=== PATIENT | female | born 1975 | race Two or more races ===

== ENCOUNTER → 2024-08-23 | Outpatient (BNVA) | payer MEDICAID, SELFPAY | END | disposition home or self-care (01) | PROVIDERS: PCP Nurse Practitioner Primary Care; Referring Provider Nurse Practitioner Primary Care; Visit Provider Nurse Practitioner Primary Care | DX: N92.6 Irregular menstruation, unspecified (principal); Z71.2 Person consulting for explanation of examination or test findings; D25.1 Intramural leiomyoma of uterus | CPT/HCPCS: 99213 ==

== ENCOUNTER → 2024-10-01 | Outpatient (BNVA) | payer MEDICAID, SELFPAY | END | disposition home or self-care (01) | PROVIDERS: PCP Nurse Practitioner Primary Care; Referring Provider Nurse Practitioner Primary Care; Visit Provider Nurse Practitioner Primary Care | DX: D25.1 Intramural leiomyoma of uterus (principal); D25.2 Subserosal leiomyoma of uterus; Z71.2 Person consulting for explanation of examination or test findings | CPT/HCPCS: 85018; 99214 ==

== ENCOUNTER → 2024-10-10 | Outpatient (BNVA) | payer MEDICAID, SELFPAY | END | disposition home or self-care (01) | PROVIDERS: PCP Nurse Practitioner Primary Care; Referring Provider Nurse Practitioner Primary Care; Visit Provider Nurse Practitioner Primary Care | DX: Z71.2 Person consulting for explanation of examination or test findings (principal); R79.9 Abnormal finding of blood chemistry, unspecified; E78.5 Hyperlipidemia, unspecified; E11.9 Type 2 diabetes mellitus without complications; Z79.4 Long term (current) use of insulin | CPT/HCPCS: 99213 ==

== ENCOUNTER 2024-11-17 15:06 | Emergency (ER) | payer MEDICAID, SELFPAY ==
[2024-11-17 15:07] VITALS: BMI 28.3
[2024-11-17 15:20] VITALS: BP 130/67; PULSE 105; RESP 16; TEMP 37; O2SAT 98
--- NOTE | 2024-11-17 15:39 | PD.EDRME ---
Rapid Medical Screening Exam RME Arrival date/time: 11/17/24 15:06 This is a 49-year-old female that comes in with complaints of heavy vaginal bleeding that started this morning. Patient states her last menstrual cycle was November 01, 2024. Patient states that she has had to change her brief 4 times in 1 hour. Patient has a history of anemia and was told she had a fibroma. Patient also has a history of diabetes I have greeted and performed a focused initial assessment of this patient. Initial appropriate labs ordered at this time. A comprehensive ED assessment and evaluation of the patient and analysis of all test and completion of medical decision making process will be conducted by additional ED provider. Chief Complaint: Abdominal Pain Time Seen by Provider: 11/17/24 15:10 Vital signs: Vital Signs Temperature 98.6 F 11/17/24 15:20 Pulse Rate 105 H 11/17/24 15:20 Respiratory Rate 16 11/17/24 15:20 Blood Pressure 130/67 11/17/24 15:20 Pulse Oximetry (%) 98 11/17/24 15:20 Oxygen Delivery Method Room Air 11/17/24 15:20
--- NOTE | 2024-11-17 15:43 | XR_ITS ---
Examination: Pelvic ultrasound, transabdominal, complete Technique: Transabdominal ultrasound of the pelvis performed using grayscale imaging Date and time of exam: November 17, 2024 1906 hrs. Indications: Heavy vaginal bleeding beginning 2 days ago Findings: Uterus 14.3 x 9.0 x 10.4 cm Endometrial uterine fundal mass 6.7 x 4.9 x 7.7 cm Endometrial stripe 15 mm Ovaries obscured by bowel gas Impression: Findings most consistent with large uterine fundal mass, 6.7 x 4.9 x 7.7 cm, stable compared with August 02, 2024
[2024-11-17 15:45] LABS: Basophils % (Auto) 0 % (0-2.5); Eosinophils # (Auto) 0.2 Thou/mm3 (0.0-0.5); Eosinophils % (Auto) 2 % (0-10); Hematocrit 33.6 % (36.0-46.0); Hemoglobin 10.6 g/dL (12.0-16.0); Immature Granulocytes % (Auto) 1 % (0-0); Immature Granulocytes Auto 0.06 Thou/mm3 (0.00-0.00); Lymphocytes # (Auto) 2.6 Thou/mm3 (1.0-4.8); Lymphocytes % (Auto) 28 % (10-50); Mean Corpuscular HGB Conc 31.5 g/dl (31.0-37.0); Mean Corpuscular Hemoglobin 28.2 pg (25.0-35.0); Mean Corpuscular Volume 89 fL (80-100); Monocytes # (Auto) 0.6 Thou/mm3 (0.0-0.8); Monocytes % (Auto) 7 % (0-12); Neutrophils # (Auto) 5.9 Thou/mm3 (1.8-7.7); Neutrophils % (Auto) 63 % (37-80); Nucleated Red Blood Cell % 0 /100 WBC (0); Platelet Count 354 Thou/mm3 (140-440); RDW Standard Deviation 77.5 fL (36.4-46.3); Red Blood Count 3.76 Miln/mm3 (4.00-5.20); White Blood Count 9.5 Thou/mm3 (3.6-11.0)
[2024-11-17 15:56] LABS: Prothrombin Time 10.7 Seconds (9.0-12.2)
[2024-11-17 16:01] LABS: Alanine Aminotransferase 44 U/L (10-49); Albumin/Globulin Ratio 1.4 (1.2-2.2); Alkaline Phosphatase 71 U/L (46-116); Anion Gap 7 (7-16); Aspartate Amino Transferase 24 U/L (0-34); BUN/Creatinine Ratio 15 Ratio (12-20); Bilirubin,Total 0.2 mg/dL (0.3-1.2); Blood Urea Nitrogen 12 mg/dL (9-23); Calcium 8.7 mg/dL (8.3-10.6); Calcium (Corrected) 8.7 mg/dL (8.5-10.1); Carbon Dioxide 23.7 mMol/L (20.0-31.0); Chloride 109 mMol/L (98-107); Creatinine (Component) 0.8 mg/dL (0.6-1.3); Estimated Creatinine Clearance 84.3 mL/min (>60); Globulin 2.9 gm/dL (2.3-3.5); Glucose 125 mg/dL (74-106); Osmolality,Calculated 280 (275-295); Potassium 4.1 mMol/L (3.4-5.1); Sodium 140 mMol/L (136-145); Total Protein 6.9 gm/dL (5.7-8.2); eGFR > 60 See Note
[2024-11-17 16:05] LABS: Collection Type, Urine Voided; Squamous Epithelial Cell,Urine 0 /hpf (0-5)
[2024-11-17 16:23] LABS: HCG,Qualitative Serum Negative
[2024-11-17 16:26] LABS: Bilirubin,Urine Negative (Negative); Blood,Urine 3+ (Negative); Glucose, Urine Negative (Negative); Ketones,Urine Negative (Negative); Leukocyte Esterase,Urine Positive (Negative); Nitrite,Urine Negative (Negative); Protein,Urine 1+ (Neg - Trace); RBC,Urine 4009 /hpf (0-3); Urobilinogen,Urine Negative mg/dL (0.0-1.0); WBC,Urine 44 /hpf (0-5)
[2024-11-17 16:27] LABS: Culture Indicated,Urine Yes
[2024-11-17 16:28] LABS: Clarity,Urine Cloudy (Clear/Hazy); Color,Urine Lt-Red (Lt Yel-Yel)
[2024-11-17 18:11] VITALS: BP 114/73; PULSE 96; RESP 20; TEMP 37.1; O2SAT 98
[2024-11-17 19:17] VITALS: BP 113/76; PULSE 90; RESP 20; TEMP 36.7; O2SAT 99
--- NOTE | 2024-11-17 19:46 | EDNOTE_ITS ---
ED OB Contraction Preg RMI/HPI General Chief complaint: Abdominal Pain Stated complaint: LLQ ABD PAIN, HEAVY MENSTRAL BLEEDING SINCE 3AM Time Seen by Provider: 11/17/24 15:10 Source: patient Arrival date/time: 11/17/24 15:06 49-year-old female with past medical history of anemia presents to the emergency department complaining of vaginal bleeding that is been ongoing for 4 days but in recently worsened today. Patient reports has changed more than 4 pads today. Patient reports is a patient of Dr Cano INFORMATION OFFICER and has a follow-up appointment on Monday. Patient denies any fever, chills, dysuria, flank pain, or any other associated symptom. Mode of arrival: ambulatory Limitations: no limitations RME / HPI RME / HPI Narrative: 11/17/24 15:06 This is a 49-year-old female that comes in with complaints of heavy vaginal bleeding that started this morning. Patient states her last menstrual cycle was November 01, 2024. Patient states that she has had to change her brief 4 times in 1 hour. Patient has a history of anemia and was told she had a fibroma. Patient also has a history of diabetes I have greeted and performed a focused initial assessment of this patient. Initial appropriate labs ordered at this time. A comprehensive ED assessment and evaluation of the patient and analysis of all test and completion of medical decision making process will be conducted by additional ED provider. Related Data Previous Rx's ?Medication ?Instructions ?Recorded atorvastatin 10 mg tablet (Lipitor) 10 mg PO QHS #90 t abs 07/08/24 metformin 500 mg tablet 500 mg PO QDAY #90 tabs 06/19 10/11 cyclobenzaprine 5 mg tablet 5 mg PO QHS PRN muscle spa sm #20 10/10/24 tabs ferrous sulfate 325 mg (65 mg 325 mg PO QDAY #30 tabs 10/10/24 iron) tablet ibuprofen 800 mg tablet 800 mg PO Q8H PRN pain #60 t abs 10/10/24 acetaminophen 500 mg capsule 500 mg PO Q6H PRN pain #3 0 caps 11/17/24 cephalexin 500 mg tablet 500 mg PO BID 5 days #10 tab s 11/17/24 Allergies Allergy/AdvReac Type Severity Reaction Status Date / Time No Known Allergies Allergy Verified 11/17/24 15:10 Review of Systems Review of Systems Systems Reviewed: All systems reviewed, normal except as documented Constitutional Constitutional: Reports system reviewed and no additional complaints, except as documented, Denies body ache(s), Denies chills and Denies fever(s) Eyes Eyes: Reports system reviewed and no additional complaints, except as documented and Denies change in vision ENT Ears, Nose, Mouth, and Throat: Reports system reviewed and no additional complaints, except as documented, Denies disequilibrium, Denies dizziness, Westley es sore throat and Denies vertigo Cardiovascular Cardiovascular: Reports system reviewed and no additional complaints, except as documented, Denies chest pain and Denies dyspnea Respiratory Respiratory: Reports system reviewed and no additional complaints, except as documented, Denies chest congestion, Denies cough and Denies dyspnea Gastrointestinal Gastrointestinal: Reports system reviewed and no additional complaints, except as documented, Reports abdominal pain, Denies nausea and Denies vomiting Genitourinary Genitourinary: Reports abnormal vaginal bleeding Musculoskeletal Musculoskeletal: Reports system reviewed and no additional complaints, except as documented, Denies abnormal gait and Denies arthralgias Integumentary/Breasts Skin/Breast: Reports system reviewed and no additional complaints, except as documented, Denies erythema, Denies rash and Denies wounds Neurologic Neurologic: Reports system reviewed and no additional complaints, except as documented, Denies abnormal gait, Denies disequilibrium, Denies dizziness and Denies vertigo Past Medical History Past Medical History CARDIAC: Negative Congestive Heart Failure RESPIRATORY: Negative Chronic Obstructive Pulmonary Disease (COPD) GENITOURINARY: Negative Renal Disease ENDOCRINE: Negative Diabetes Mellitus Type 1 or Diabetes Mellitus Type 2 Social History SMOKING STATUS: Current every day smoker SECOND HAND EXPOSURE: Yes ED Exam General Limitations: Present no limitations General appearance: Present alert and in no apparent distress Head Head exam: Present atraumatic Eye Eye exam: Present normal appearance, PERRL and EOMI ENT ENT exam: Present normal exam, normal oropharynx and mucous membranes moist Neck Neck exam: Present normal inspection, full ROM and trachea midline Chest Chest inspection: Present normal inspection and symmetric chest wall rise Respiratory Respiratory exam: Present normal lung sounds bilaterally Cardiovascular Cardiovascular exam: Present regular rate, normal rhythm and normal heart sounds Abdominal Exam Abdominal exam: Present soft and normal bowel sounds; Absent Alba's sign or tenderness at McBurney's Point Extremities Exam Extremities exam: Present normal inspection and full ROM Back Exam Back exam: Present normal inspection and full ROM Neurological Exam Neurological exam: Present alert, oriented X3 and CN II-XII intact Psychiatric Psychiatric exam: Present normal affect and normal mood Skin Skin exam: Present warm, dry, intact and normal color Course Quality Measures none Orders Category Date Time Status US pelvic complete Stat Exams 11/17/24 15:43 Completed CBC Stat Lab 11/17/24 15:37 Completed Comprehensive Metabolic Panel Stat Lab 11/17/24 15:37 Completed HCG,Qualitative Serum Stat Lab 11/17/24 15:37 Completed Prothrombin Time with INR Stat Lab 11/17/24 15:37 Completed Type and Screen Stat Lab 11/17/24 15:37 Completed Urinalysis, C/S if Indicated Stat Lab 11/17/24 15:40 Completed Urine Culture Stat Lab 11/17/24 15:40 Received Acetaminophen Tab [Tylenol ES Tab] Med 11/17/24 19:49 Discontinued 1,000 mg PO X1 ONE Vital Signs Vital signs: Vital Signs Temperature 98.6 F 11/17/24 15:20 Pulse Rate 105 H 11/17/24 15:20 Respiratory Rate 16 11/17/24 15:20 Blood Pressure 130/67 11/17/24 15:20 Pulse Oximetry (%) 98 11/17/24 15:20 Oxygen Delivery Method Room Air 11/17/24 15:20 98% room air within normal limits Vaginal Bleeding MDM Narrative MDM Narrative: 49-year-old female with past medical history of anemia presents to the emergency department complaining of vaginal bleeding that is been ongoing for 4 days but in recently worsened today. Patient reports has changed more than 4 pads today. Patient reports is a patient of Dr Cano INFORMATION OFFICER and has a follow-up appointment on Monday. Patient denies any fever, chills, dysuria, flank pain, or any other associated symptom. CBC no leukocytosis and hemoglobin of 10.6. CMP was unremarkable for any elevated LFTs or gross electrolyte abnormalities. hCG negative. Ultrasound pelvis findings as written by radiologist: Uterus 14.3 x 9.0 x 10.4 cm Endometrial uterine fundal mass 6.7 x 4.9 x 7.7 cm Endometrial stripe 15 mm Ovaries obscured by bowel gas Patient appears nontoxic and is hemodynamically stable. Patient has had uterine fundal mass and previous ultrasounds and currently sees Dr Cano. Dr Cano consulted and agreed to see patient tomorrow morning at 9 AM in his office for close follow-up. Patient given strict return instructions to return to emergency department if any worsening bleeding, severe pain, worsening symptoms, or as needed. Urinalysis was positive for some leukocytes and WBCs will treat with antibiotics. Patient stable for discharge. Patient data External records reviewed:: [facility] previous records Clinical information provided by:: patient Social determinants that could affect healthcare access:: none Patient has the following chronic illnesses:: See chart How is presenting disease/condition affected by chronic disease/condition?: uneffected by Evaluation data The following diagnostics were reviewed and interpreted by me:: lab results and radiology exam(s) Lab and/or radiology exams considered but not ordered:: Ordered Interpretation Summary: Interpreted by me Medications / Prescriptions Medications or Prescriptions considered but not ordered:: Ordered Medication administrations:: Medication Administration History Discontinued Medications Acetaminophen (Acetaminophen 500 Mg Tablet) 1,000 mg PO X1 ONE Stop: 11/17/24 19:50 Last Admin: 11/17/24 20:06 Dose: 1,000 mg Documented By: DB Given Consultations Consultation(s) initiated? (list below): Yes Consultation #1 (Physician, Specialty, Details): Dr Cano Diagnosis Vaginal Bleeding Differential Diagnosis: dysfunctional uterine bleeding, menometrorrhagia, ectopic without intrauterine , vaginal bleeding and other (Ovarian torsion) Most likely diagnosis given after review of the tests above:: Uterine mass Admission Indicated Admission indicated?: not indicated Admission Request Was there a request for admission?: No Disposition Plan Disposition Plan: Discharge Discharge Attestation Discharge Attestation: The patient and all family members were given an opportunity to ask questions and understood the discharge instructions. Discharge instructions specifically effects, indications for sooner follow up or return to the emergency department, and the expected course of current diagnosis. Patient condition: Stable Discharge Plan Plan Patient Disposition: HOME (Self Care) Disposition Comment: Stable Prescriptions/Referrals Prescriptions/Med Rec: New acetaminophen 500 mg capsule 500 mg PO Q6H PRN (Reason: pain) Qty: 30 0RF cephalexin 500 mg tablet 500 mg PO BID 5 Days Qty: 10 0RF No Action metformin 500 mg tablet 500 mg PO QDAY Qty: 90 0RF atorvastatin [Lipitor] 10 mg tablet 10 mg PO QHS Qty: 90 0RF ferrous sulfate 325 mg (65 mg iron) tablet 325 mg PO QDAY Qty: 30 0RF ibuprofen 800 mg tablet 800 mg PO Q8H PRN (Reason: pain) Qty: 60 0RF cyclobenzaprine 5 mg tablet 5 mg PO QHS PRN (Reason: muscle spasm) Qty: 20 0RF Referrals: Klaus Cano MD [Physician] - 11/18/24 9:00 am No Primary/Family,Physician [Primary Care Provider] - In 1 week Problem List Clinical Impression: Uterine mass Patient/Caregiver Discharge Instructions Discharge Activity: activity as tolerated Additional Instructions: Take Tylenol as needed for pain. Close follow-up tomorrow at [address] Cano in his office. Return immediately to the emergency department for any increased bleeding, increased pain, fevers, worsening symptoms, or as needed. Print Language: Citizen Of [place] Stand Alone Forms: Carie Award Info., Patient Portal Info Letter PA/JUNO Supervising Physician JUAINS/JUNO Supervising Physician: Dr. Lauren
[2024-11-17] MEDS: ACETAMINOPHEN 500 MG TABLET 1000 MG PO (20:06)
== END 2024-11-17 20:08 | disposition home or self-care (01) ==
PROVIDERS: Nurse Practitioner Family; Emergency Provider Emergency Medicine
DX: N85.8 Other specified noninflammatory disorders of uterus (principal)
CPT/HCPCS: 36415; 76856; 80053; 81001; 84703; 85025; 85610; 86850; 86900; 86901; 87077; 87086; 87186; 99284; A9270

== ENCOUNTER → 2024-11-27 | Outpatient (BNVA) | payer MEDICAID, SELFPAY | END | disposition home or self-care (01) | PROVIDERS: PCP Nurse Practitioner Primary Care; Referring Provider Nurse Practitioner Primary Care; Visit Provider Nurse Practitioner Primary Care | DX: Z71.2 Person consulting for explanation of examination or test findings (principal); E78.5 Hyperlipidemia, unspecified; R79.9 Abnormal finding of blood chemistry, unspecified; E11.9 Type 2 diabetes mellitus without complications | CPT/HCPCS: 99213 ==

== ENCOUNTER → 2025-01-03 | Outpatient (BNVA) | payer MEDICAID, SELFPAY | END | disposition home or self-care (01) | PROVIDERS: PCP Nurse Practitioner Primary Care; Referring Provider Nurse Practitioner Primary Care; Visit Provider Nurse Practitioner Primary Care | DX: E11.43 Type 2 diabetes mellitus with diabetic autonomic (poly)neuropathy (principal); J30.89 Other allergic rhinitis | CPT/HCPCS: 96372; 99213; J3301 ==

== ENCOUNTER → 2025-03-03 | Outpatient (BNVA) | payer MEDICAID, SELFPAY | END | disposition home or self-care (01) | PROVIDERS: PCP Nurse Practitioner Primary Care; Referring Provider Nurse Practitioner Primary Care; Visit Provider Nurse Practitioner Primary Care | DX: Z00.01 Encounter for general adult medical examination with abnormal findings (principal); Z01.83 Encounter for blood typing; N92.6 Irregular menstruation, unspecified; D50.8 Other iron deficiency anemias; E66.3 Overweight; Z11.3 Encounter for screening for infections with a predominantly sexual mode of transmission; Z13.220 Encounter for screening for lipoid disorders; J30.89 Other allergic rhinitis; Z12.11 Encounter for screening for malignant neoplasm of colon; L30.9 Dermatitis, unspecified | CPT/HCPCS: 99173; 99215; 99396; G0439 ==

== ENCOUNTER → 2025-03-10 | Outpatient (BNVA) | payer MEDICAID, SELFPAY | END | disposition home or self-care (01) | PROVIDERS: PCP Nurse Practitioner Primary Care; Referring Provider Nurse Practitioner Primary Care; Visit Provider Nurse Practitioner Primary Care | DX: R79.9 Abnormal finding of blood chemistry, unspecified (principal); Z71.2 Person consulting for explanation of examination or test findings; E78.5 Hyperlipidemia, unspecified; E11.9 Type 2 diabetes mellitus without complications | CPT/HCPCS: 99212; G0463 ==

== ENCOUNTER 2025-03-11 05:46 | Inpatient (IN) | payer MEDICAID, SELFPAY ==
--- NOTE | 2025-03-06 21:55 | ESHP_ITS ---
RE: SANDRA MORALES : 1975 DATE OF ADMISSION: 03/11/2025 DATE OF SURGERY: 03/11/2025. This is a 49-year-old 5, para 5 with symptomatic uterine fibroids, who presents for hysterectomy. The patient has had multiple blood transfusions and trips to the ER because of severe anemia due to prolonged heavy periods. She has a history of a tubal ligation. Hormonal treatments have failed to control her bleeding. ALLERGIES: NO KNOWN DRUG ALLERGIES. MEDICATIONS: Metformin 500 mg one p.o. b.i.d. PAST MEDICAL HISTORY: Migraine headache with aura, prediabetes. FAMILY HISTORY: Denies. OBSTETRIC HISTORY: Five previous full-term normal vaginal deliveries. PAST SURGICAL HISTORY: Bilateral tubal ligation. SOCIAL HISTORY: She denies any alcohol, drug use or smoking. REVIEW OF SYSTEMS: She denies any chest pain, palpitations, cough, fever, shortness of breath or lower extremity pain. PHYSICAL EXAMINATION: VITAL SIGNS: Blood pressure 110/70, heart rate 88, respirations 18, temperature is 98.6. HEENT: Oropharynx and sclerae are clear. LUNGS: Clear to auscultation bilaterally. HEART: Regular rate and rhythm. ABDOMEN: Nontender. EXTREMITIES: Nontender. SKIN: No gross rashes or lesion. NEUROLOGIC: No focal deficit. ASSESSMENT AND PLAN: Symptomatic uterine fibroids, abnormal uterine bleeding, anemia. Plan is abdominal hysterectomy, possible bilateral salpingo-oophorectomy. Informed consent was obtained. The patient is made aware of the risks of injury to bowel or bladder, ureters, adjacent organs, nerve injury to the legs and skin, pulmonary embolism, deep vein thrombosis, injury to the vessels of the abdominal wall, hematoma, abscess, wound infection, wound dehiscence, pelvic infection, re-operation to repair injury to internal organs, anesthesia complications, the need for future surgery to remove ovaries or tubes and the need to take hormone therapy with its associated risks, uncontrollable loss of urine problems, prolapse of the vagina and rarely . She is aware that in some cases, a subtotal hysterectomy may need to be performed if severe adhesions of the bladder to the lower uterine segment or other indications. She is aware under these circumstances, the menstrual cycle may continue after the surgery. DT: 20:48:32 TT: 21:53:00 Ref: [id number] - TID: [id number] MTDD
[2025-03-10 13:44] VITALS: BMI 31.1
[2025-03-10 15:02] LABS: Basophils % (Auto) 1 % (0-2.5); Eosinophils # (Auto) 0.1 Thou/mm3 (0.0-0.5); Eosinophils % (Auto) 1 % (0-10); Hematocrit 24.8 % (36.0-46.0); Immature Granulocytes % (Auto) 1 % (0-0); Immature Granulocytes Auto 0.06 Thou/mm3 (0.00-0.00); Lymphocytes # (Auto) 2.1 Thou/mm3 (1.0-4.8); Lymphocytes % (Auto) 25 % (10-50); Mean Corpuscular HGB Conc 30.6 g/dl (31.0-37.0); Mean Corpuscular Volume 75 fL (80-100); Monocytes # (Auto) 0.5 Thou/mm3 (0.0-0.8); Monocytes % (Auto) 6 % (0-12); Neutrophils # (Auto) 5.7 Thou/mm3 (1.8-7.7); Neutrophils % (Auto) 67 % (37-80); Nucleated Red Blood Cell # 0.05 Thou/mm3 (0.00-0.00); Nucleated Red Blood Cell % 1 /100 WBC (0); Platelet Count 509 Thou/mm3 (140-440); RDW Standard Deviation 58.3 fL (36.4-46.3); White Blood Count 8.5 Thou/mm3 (3.6-11.0)
[2025-03-10 15:14] LABS: Alanine Aminotransferase 33 U/L (10-49); Albumin, Serum 4.2 gm/dL (3.5-5.0); Albumin/Globulin Ratio 1.5 (1.2-2.2); Alkaline Phosphatase 86 U/L (46-116); Anion Gap 8 (7-16); Aspartate Amino Transferase 30 U/L (0-34); BUN/Creatinine Ratio 12 Ratio (12-20); Beta HCG,Quantitative < 1 mIU/mL (<5.0); Bilirubin,Total 0.3 mg/dL (0.3-1.2); Blood Urea Nitrogen 7 mg/dL (9-23); Calcium 8.8 mg/dL (8.3-10.6); Calcium (Corrected) 8.8 mg/dL (8.5-10.1); Carbon Dioxide 24.3 mMol/L (20.0-31.0); Chloride 107 mMol/L (98-107); Creatinine (Component) 0.6 mg/dL (0.6-1.3); Estimated Creatinine Clearance 104.9 mL/min (>60); Globulin 2.8 gm/dL (2.3-3.5); Glucose 153 mg/dL (74-106); Osmolality,Calculated 278 (275-295); Potassium 3.6 mMol/L (3.4-5.1); Sodium 139 mMol/L (136-145); eGFR > 60 See Note
[2025-03-10 15:18] LABS: Partial Thromboplastin Time 21.3 Seconds (22.0-36.0); Prothrombin Time 10.5 Seconds (9.0-12.2)
[2025-03-10 15:36] LABS: Hemoglobin 7.6 g/dL (12.0-16.0)
--- NOTE | 2025-03-10 15:39 | SUR.PREOP ---
Hgb 7.6, Dr Cano notified, no orders received.
[2025-03-11] VITALS (17 sets, daily range): BP systolic 116–147; BP diastolic 75–103; PULSE 61–94; RESP 12–98; TEMP 36.1–36.9; O2SAT 95–100; BMI 30.2
--- NOTE | 2025-03-11 10:47 | SUR.PHASEI ---
pt received from OR in recovery bay 3. pt asleep but responds to voice, breathing unlabored on oxymask 8l. v/s stable. pt dressing to abd cdi. report received from Rae CALVILLO and Dr. Grande.
[2025-03-11] MEDS: HYDROmorphone INJ 2 MG/ML VIAL 0.4 MG IVP ×2 (11:03→11:27)
[2025-03-11] MEDS: ACETAMINOPHEN IVPB 1,000 MG/100 ML VIAL 250 MG IV (11:05)
--- NOTE | 2025-03-11 11:09 | ESOP_ITS ---
Operative Note - SERVICE ARCHITECT Procedure Date of procedure: 03/11/25 Procedure Performed: Subtotal abdominal hysterectomy, Left salpingoophrectomy, right salpingectomy and right ovarian cystectomy. Indication: Symptomatic uterine fibroids. Pre-Op diagnosis: Symptomatic uterine fibroids. Post-Op diagnosis: Symptomatic uterine fibroids. Left endometrioma Right ovarian hemorrhagic cyst. Anesthesia type: General Procedure description: The risks, benefits, indications, and alternatives of the procedure were reviewed with the patient and informed consent was obtained.? She was taken to the operating room with IV running.? She received antibiotics prior to the procedure.? LAUREN hose and Flowtrons were in place.? She was placed in the supine position on the operating room table.? She underwent induction of general anesthesia.? A Rai catheter was placed.? She was prepped and draped in the usual sterile fashion.? A timeout was performed.? A Pfannenstiel skin incision was made with a scalpel, carried through the underlying layer of fascia with the Bovie.? The fascia was nicked in the midline and the incision extended bilaterally with the Bovie.? The inferior aspect of fascial incision was grasped with Frank clamps, elevated, and the underlying rectus muscle dissected off with the Bovie.? The rectus muscles were in the midline.? The peritoneum was identified between 2 Madalyn clamps and entered sharply with the Metzenbaum scissors.? The incision was extended superiorly and inferiorly with good visualization.? The patient was placed in slight Trendelenburg and the O'Michael-O'Licona retractor was placed and the bowel packed away with 3 moist laparotomy pads.? The superior and inferior retractors were attached to the O'Michael- O'Licona. The round ligaments on both sides were clamped with the EnSeal X1 large jaw, fulgurated,? transected, and hemostasis was achieved.? The utero-ovarian ligaments on both sides were then clamped with the EnSeal, fulgurated and transected, and hemostasis was achieved.? The anterior leaf of the broad ligament was incised along the bladder reflection at the midline from both sides.? The bladder was gently dissected off the lower uterine segment with Metzenbaum scissors and pickups with teeth.? This was made difficult due to the size of the uterus.? The broad ligaments on both sides were then clamped with the EnSeal X1 large jaw, fulgurated, and transected.? Hemostasis was achieved. The uterine arteries then were bilaterally clamped with the EnSeal X1 large jaw, fulgurated, and transected.? Hemostasis was achieved. The uterus was amputated at the level of the cervix uterine junction. The cervical stump was suture ligated with a series of figure of eight O vicryl sutures. The fallopian tubes which were grasped with a New Era clamp, fulgurated with the EnSeal X1 large jaw, transected, and hemostasis was achieved.?The left infindibular pelvic ligament was clamped with the Enseal fulgurated and transected and hemostasis was acheived. Left ovary was removed. A hemorrhagic right ovarian cyst 1.5 x 1.5 cm was removed with the bovie and hemostasis acheived with 2-0 chronic suture. The pelvis was irrigated with warm normal saline. The pelvis was observed for 5 minutes and no bleeding was seen. The right ovary was wrapped in interceed. The retractor and lap pads were removed. The peritoneum closed with 0 chronic catgut suture. The rectus muscle was closed with 0 chronic catgut suture. The fascia was closed with 0 Vicryl beginning at each angle and ending center in a running fashion.? Subcutaneous tissue was irrigated with normal saline solution and closed with 2-0 chromic catgut suture in running fashion.? The skin was closed with 4-0 Monocryl.? Dermabond Prineo dressing was applied, and then a sterile pressure dressing was applied.? She tolerated the procedure well.? Counts were correct. I discussed with the patient preoperatively the postoperative plan.? All questions were answered Fluids: crystalloid Specimen: uterus, left tube, right tube, left ovary (right ovarian cyst) and other Estimated blood loss (ml): 100 Findings: 18 week size fibroid uterus Left ovary endometrioma 3 x 4 cm Right ovarian hemorrhagic cyst 1.5 x 1.5 cm. Complications: none Surgical staff Operation Date: 03/11/25 09:30 Case Staff Anesthesiologist: Tee Grande RN First Assistant: Shanae Sanchez Diagnosis Discharge Diagnosis (1) S/P abdominal hysterectomy and left salpingo-oophorectomy: Status: Acute Problem List Completed Was Problem List Reviewed/Reconciled?: Yes
[2025-03-11] MEDS: Morphine Sulfate PF 1 MG/ML PCA VIAL 30 ML 30 MG IV (11:40)
[2025-03-11] MEDS: RINGERS LACTATED 1000 ML 1,000 ML 100 ML IV ×2 (11:48→21:31)
--- NOTE | 2025-03-11 12:20 | SUR.PHASEI ---
pt asleep but responds to voice, breathing unlabored on room air. v/s stable. pt dressing to abd cdi. report called to Asha CALVILLO. pt will be transferred to room at this time.
[2025-03-11 16:17] LABS: Basophils % (Auto) 0 % (0-2.5); Eosinophils % (Auto) 0 % (0-10); Hematocrit 30.7 % (36.0-46.0); Hemoglobin 10.2 g/dL (12.0-16.0); Immature Granulocytes % (Auto) 1 % (0-0); Immature Granulocytes Auto 0.08 Thou/mm3 (0.00-0.00); Lymphocytes # (Auto) 0.9 Thou/mm3 (1.0-4.8); Lymphocytes % (Auto) 5 % (10-50); Mean Corpuscular HGB Conc 33.2 g/dl (31.0-37.0); Mean Corpuscular Hemoglobin 24.9 pg (25.0-35.0); Mean Corpuscular Volume 75 fL (80-100); Monocytes # (Auto) 0.4 Thou/mm3 (0.0-0.8); Monocytes % (Auto) 3 % (0-12); Neutrophils # (Auto) 15.7 Thou/mm3 (1.8-7.7); Neutrophils % (Auto) 92 % (37-80); Nucleated Red Blood Cell # 0.06 Thou/mm3 (0.00-0.00); Nucleated Red Blood Cell % 0 /100 WBC (0); Platelet Count 381 Thou/mm3 (140-440); RDW Standard Deviation 54.6 fL (36.4-46.3); Red Blood Count 4.09 Miln/mm3 (4.00-5.20); White Blood Count 17.1 Thou/mm3 (3.6-11.0)
[2025-03-11] MEDS: PROMETHAZINE INJ 25 MG in SODIUM CHLORIDE 0.9% 50 ML 102 MG IV (21:32)
[2025-03-12] VITALS (9 sets, daily range): BP systolic 127–158; BP diastolic 74–93; PULSE 58–91; RESP 18–98; TEMP 36.1–36.6; O2SAT 95–99; BMI 33.0
--- NOTE | 2025-03-12 06:27 | ESPR_ITS ---
RE: SANDRA MORALES : 1975 DATE OF SERVICE: 03/12/2025 Postop day #1. The patient denies any problem or complaint. She has adequate urine output with Rai catheter in place. She denies any vaginal bleeding. She is tolerating a regular diet. She denies any nausea or vomiting. She denies passing flatus. She denies any dizziness or lightheadedness. She denies any chest pain, palpitations, shortness of breath or lower extremity pain. OBJECTIVE: Vital Signs: Blood pressure is 135/82, heart rate 59, respirations 22, temperature is 97.2. Lungs: Clear to auscultation bilaterally. Heart: Regular rate and rhythm. Abdomen: Mild gaseous distention. Dressing dry and intact. Extremities: Nontender. Hemoglobin pre-surgery is 7.6, post surgery is 10.2. ASSESSMENT: Postoperative day number 1, status post subtotal abdominal hysterectomy, left salpingo-oophorectomy, right salpingectomy and right ovarian cystectomy, status post transfusion of 2 units of packed red blood cells intraoperatively. PLAN: Discontinue INVESTOR RELATIONS ANALYST. Encourage ambulation. Remove dressing. Possible discharge home tomorrow. I discussed with the patient the intraoperative findings, expectation for recovery. All questions answered. DT: :18:55 TT: 06:25:00 Ref: [id number] - TID: [id number]
[2025-03-12] MEDS: DOCUSATE SOD 100 MG CAPSULE PO (08:22)
[2025-03-12] MEDS: ENOXAPARIN SOD INJ 40 MG/0.4 ML SYRINGE SC (08:22)
[2025-03-12] MEDS: HYDROcodone/APAP 5/325 TABLET 2 TAB PO ×2 (08:29→15:31)
--- NOTE | 2025-03-12 13:24 | PC.NURSE ---
Patient wants to take a shower. Patients is going to help her shower.
[2025-03-12] MEDS: KETOROLAC INJ 30 MG/ML VIAL IVP (20:16)
[2025-03-12] MEDS: BENZONATATE 100 MG CAPSULE 200 MG PO (23:24)
[2025-03-13] VITALS: BP 127/83; PULSE 96; RESP 18; TEMP 36.2; O2SAT 98
[2025-03-13] MEDS: KETOROLAC INJ 30 MG/ML VIAL IVP ×2 (02:56→09:27)
[2025-03-13 04:00] VITALS: BP 138/86; PULSE 67; RESP 15; TEMP 36.5; O2SAT 98
--- NOTE | 2025-03-13 07:19 | ESPR_ITS ---
RE: SANDRA MORALES : 1975 DATE OF SERVICE: 03/13/2025 SUBJECTIVE: Postoperative day #2, the patient denies any problem or complaints. She is voiding. She is ambulating. She is tolerating diet. She is passing flatus. She denies any excessive vaginal bleeding. She denies any dizziness or lightheadedness. She denies any chest pain, palpitations, shortness of breath, or lower extremity pain. OBJECTIVE: Vital Signs: Blood pressure is 138/86, heart rate is 67, respirations 15, temperature 97.7, pulse oximetry is 98% on room air. Lungs: Clear to auscultation bilaterally. Heart: Regular rate and rhythm. Abdomen: Nondistended. Incision clear and intact. Extremities: Nontender. ASSESSMENT: Postop day #2, status post subtotal abdominal hysterectomy, bilateral salpingectomy, left oophorectomy, and right ovarian cystectomy. PLAN: Discharge home. Discharge instructions were given. Follow up in the office in 1 week. DT: 06:52:01 TT: 07:18:00 Ref: [id number] - TID: [id number]
[2025-03-13 08:00] VITALS: BP 128/83; PULSE 80; RESP 16; TEMP 36.1; O2SAT 97
[2025-03-13] MEDS: SIMETHICONE 80 MG CHEW PO (08:10)
[2025-03-13] MEDS: ENOXAPARIN SOD INJ 40 MG/0.4 ML SYRINGE SC (08:10)
[2025-03-13] MEDS: DOCUSATE SOD 100 MG CAPSULE PO (08:10)
[2025-03-13] MEDS: BENZONATATE 100 MG CAPSULE 200 MG PO (08:21)
--- NOTE | 2025-03-13 11:06 | ESDS_ITS ---
RE: SANDRA MORALES : 1975 DATE OF ADMISSION: 03/11/2025 DATE OF DISCHARGE: 03/13/2025 HOSPITAL COURSE: This is a 49-year-old who was admitted on 03/11 with symptomatic uterine fibroids for an abdominal hysterectomy. She underwent a subtotal abdominal hysterectomy, bilateral salpingectomy, left oophorectomy, and right ovarian cystectomy under general anesthesia with 100 mL of blood loss on 03/11 without complication. She did receive 2 units of packed red blood cells preoperatively and intraoperatively for preoperative hemoglobin of 7.6. Her postoperative course was unremarkable. Her 4-hour post transfusion hemoglobin was 10.6. She was voiding, ambulating, tolerated regular diet, and passing flatus on postoperative day #2. DISCHARGE DIAGNOSES: Symptomatic uterine fibroids, subtotal abdominal hysterectomy, bilateral salpingectomy, left oophorectomy, and right ovarian cystectomy. DT: 06:53:43 TT: 11:05:00 Ref: [id number] - TID: [id number]
[2025-03-13 11:15] VITALS: BP 124/74; PULSE 73; RESP 18; TEMP 36.4; O2SAT 99
== END 2025-03-13 11:15 | disposition home or self-care (01) | DRG 519 ==
LOC: S2W1 07:07 → S3SX 13:00
PROVIDERS: Admitting Provider Specialist; PCP Nurse Practitioner Primary Care; Visit Provider Specialist
PROC: 0UT90ZZ Resection of Uterus, Open Approach (ICD-10-PCS; principal; 2025-03-11 09:15)
DX: D25.9 Leiomyoma of uterus, unspecified (principal); N80.122 Deep endometriosis of left ovary; N83.201 Unspecified ovarian cyst, right side; D64.9 Anemia, unspecified
CPT/HCPCS: 36415; 80053; 84702; 85025; 85610; 85730; 86850; 86900; 86901; 86923; A4217; A4314; A4649; C1765; J0131; J0690; J1100; J1171; J1650; J1885; J2250; J2270; J2405; J2550; J2704; J3010; J3490; J7120; P9016; A9270

== ENCOUNTER → 2025-05-23 | Outpatient (BNVA) | payer MEDICAID, SELFPAY | END | disposition home or self-care (01) | PROVIDERS: PCP Nurse Practitioner Primary Care; Referring Provider Nurse Practitioner Primary Care; Visit Provider Nurse Practitioner Primary Care | DX: E11.9 Type 2 diabetes mellitus without complications (principal); E78.5 Hyperlipidemia, unspecified; Z91.A48 Caregiver's other noncompliance with patient's medication regimen for other reason | CPT/HCPCS: 83036; 99214 ==

== ENCOUNTER → 2025-05-28 | Outpatient (BNVA) | payer MEDICAID, SELFPAY | END | disposition home or self-care (01) | PROVIDERS: PCP Nurse Practitioner Primary Care; Referring Provider Nurse Practitioner Primary Care; Visit Provider Nurse Practitioner Primary Care | DX: F32.9 Major depressive disorder, single episode, unspecified (principal); F41.9 Anxiety disorder, unspecified | CPT/HCPCS: 99212; 99214 ==

== ENCOUNTER → 2025-06-03 | Outpatient (BNVA) | payer MEDICAID, SELFPAY | END | disposition home or self-care (01) | PROVIDERS: PCP Nurse Practitioner Family; Referring Provider Nurse Practitioner Family; Visit Provider Nurse Practitioner Family | DX: Z12.39 Encounter for other screening for malignant neoplasm of breast (principal); T78.40XA Allergy, unspecified, initial encounter | CPT/HCPCS: 99213 ==

== ENCOUNTER → 2025-06-17 | Outpatient (BNVA) | payer MEDICAID, SELFPAY | END | disposition home or self-care (01) | PROVIDERS: PCP Nurse Practitioner Primary Care; Referring Provider Nurse Practitioner Primary Care; Visit Provider Nurse Practitioner Primary Care | DX: E11.9 Type 2 diabetes mellitus without complications (principal); Z71.6 Tobacco abuse counseling; T78.40XA Allergy, unspecified, initial encounter | CPT/HCPCS: 99212; G0463 ==

== ENCOUNTER → 2025-07-23 | Outpatient (BNVA) | payer MEDICAID, SELFPAY | END | disposition home or self-care (01) | PROVIDERS: PCP Nurse Practitioner Primary Care; Referring Provider Nurse Practitioner Primary Care; Visit Provider Nurse Practitioner Primary Care | DX: E11.9 Type 2 diabetes mellitus without complications (principal); R94.5 Abnormal results of liver function studies; D64.9 Anemia, unspecified; Z23 Encounter for immunization; Z12.11 Encounter for screening for malignant neoplasm of colon | CPT/HCPCS: 90471; 90686; 99215; G0008 ==

== ENCOUNTER → 2025-08-22 | Outpatient (BNVA) | payer MEDICAID, SELFPAY | END | disposition home or self-care (01) | PROVIDERS: PCP Nurse Practitioner Primary Care; Referring Provider Nurse Practitioner Primary Care; Visit Provider Nurse Practitioner Primary Care | DX: E11.9 Type 2 diabetes mellitus without complications (principal); Z12.39 Encounter for other screening for malignant neoplasm of breast | CPT/HCPCS: 99213 ==